=== PATIENT | male | born 2000 | race Caucasian/White ===

== ENCOUNTER → 2018-01-14 | Outpatient (CLI) | payer OTHER ==
--- NOTE | 2018-01-14 17:26 | RADIOLOGY IMAGING REPORT ---
FACILITY: [facility] [place] PATIENT NAME: Kolby Prieto : 2000 MR: [id number] V: [id number] EXAM DATE: ORDERING PHYSICIAN: DIANA KEENAN TECHNOLOGIST: Location: [facility] [place] Patient: Kolby Prieto : 2000 Visit/Account:[id number] Date of Sevice: 01/14/2018 Exam type: ELBOW 3 VIEW LEFT History: Fell 2 days ago, pain over olecranon Comparison: None. Findings: Three views of the left elbow demonstrate mild soft tissue fullness over the dorsal aspect of the ole cranon process. No evidence of acute fracture or dislocation seen. No radiopaque soft tissue foreig n body identified IMPRESSION: 1. Mild soft tissue fullness over the dorsal aspect the olecranon process although no definite fract ure dislocation seen Report Dictated By: Anayeli Ni MD at 01/14/2018 5:10 PM Report E-Signed By: Anayeli Ni MD at 01/14/2018 5:12 PM WSN:[id number]
== END ==
LOC: RAD 16:10
PROVIDERS: ATTEND Family Medicine
DX: M25.522 Pain in left elbow (principal)